=== PATIENT | female | born 1985 | race Caucasian/White ===

== ENCOUNTER → 2019-12-07 | Outpatient (REF) | payer OTHER ==
[~2019-12-07] MED LIST: KEFL500C17 PO
== END ==
LOC: M PLALAB 12:36
PROVIDERS: ATTEND Obstetrics & Gynecology
DX: O36.80X0 Pregnancy with inconclusive fetal viability, not applicable or unspecified (principal)

== ENCOUNTER → 2019-12-09 | Outpatient (CLI) | payer OTHER | LOC: M WUC 14:16 | PROVIDERS: ATTEND Obstetrics & Gynecology | DX: O36.80X0 Pregnancy with inconclusive fetal viability, not applicable or unspecified (principal); Z3A.00 Weeks of gestation of pregnancy not specified ==

== ENCOUNTER → 2020-01-10 | Outpatient (REF) | payer OTHER | LOC: M PLALAB 14:38 | PROVIDERS: ATTEND Advanced Practice Midwife | DX: O30.041 Twin pregnancy, dichorionic/diamniotic, first trimester (principal); Z3A.08 8 weeks gestation of pregnancy ==

== ENCOUNTER → 2020-01-10 | Outpatient (CLI) | payer OTHER ==
[2020-01-10 16:53] LABS: BASO % 0.2 % (0.0-1.0); EOS # 0.1 10^3/uL (0.0-0.5); HEMATOCRIT 37.6 % (36.0-47.0); HEMOGLOBIN 12.9 g/dl (12.0-15.5); LYMPH # 2.7 10^3/uL (1.5-5.0); LYMPH % 22.2 % (24.0-44.0); MEAN CORPUSCULAR HEMOGLOBIN 32.7 pg (27.0-33.0); MEAN CORPUSCULAR HGB CONC 34.3 g/dl (32.0-36.5); MEAN CORPUSCULAR VOLUME 95.2 fl (80.0-96.0); MONO # 0.8 10^3/uL (0.0-0.8); MONO % 6.2 % (0.0-5.0); NEUTROPHILS # 8.5 10^3/uL (1.5-8.5); NEUTROPHILS % 69.6 % (36.0-66.0); PLATELET COUNT, AUTOMATED 210 10^3/uL (150-450); RED BLOOD COUNT 3.95 10^6/uL (4.00-5.40); WHITE BLOOD COUNT 12.2 10^3/uL (4.0-10.0)
[2020-01-10 17:43] LABS: HIV 1&2 SCREEN CENTAUR NEGATIVE (NEGATIVE)
[2020-01-10 20:12] LABS: CHLAMYDIA DNA AMPLIFICATION NEGATIVE (NEGATIVE); GC DNA AMPLIFICATION NEGATIVE (NEGATIVE)
[2020-01-12 10:48] LABS: HEPATITIS B SURFACE ANTIGEN NEGATIVE (NEGATIVE)
== END ==
LOC: M WUC 14:27
PROVIDERS: ATTEND Advanced Practice Midwife
DX: O30.041 Twin pregnancy, dichorionic/diamniotic, first trimester (principal); Z3A.00 Weeks of gestation of pregnancy not specified

== ENCOUNTER → 2020-01-15 | Outpatient (CLI) | payer OTHER | LOC: M LAB 18:18 | PROVIDERS: ATTEND Advanced Practice Midwife | DX: O30.041 Twin pregnancy, dichorionic/diamniotic, first trimester (principal) ==

== ENCOUNTER → 2020-01-19 | Outpatient (CLI) | payer OTHER ==
[~2020-01-19] MED LIST changes: +FERR32TA; +PREN29TA4 PO
--- NOTE | 2020-01-19 17:23 | REP ---
Clinical: Dating viability. Twin . Technique: Transabdominal obstetrical ultrasound with color Doppler evaluation. Findings: Live diamniotic dichorionic twin gestation noted. Cervix measures 3.5 cm in length and appears closed. Twin A CRL of 4.1 cm. heart rate equals 136 beats per minute. Placenta identified right lateral without previa. Twin B CRL of 3.9 cm. heart rate equals 150 beats per minute. Placenta identified anteriorly without previa. Impression: Live diamniotic dichorionic twin gestation with measurements at 10 weeks 5 days gestational age.
== END ==
LOC: M WHC 13:58
PROVIDERS: ATTEND Advanced Practice Midwife
DX: O30.041 Twin pregnancy, dichorionic/diamniotic, first trimester (principal)

== ENCOUNTER 2020-01-30 15:28 | Emergency (ER) | payer OTHER, MEDICAID ==
[~2020-01-30] VITALS: Ht 162.6 cm; Wt 90.2 kg
[~2020-01-30 15:28] MED LIST changes: -FERR32TA; -PREN29TA4 PO
[2020-01-30] MEDS ORDERED: FERR32TA (15:34)
[2020-01-30] MEDS ORDERED: PREN29TA4 PO (15:34)
[2020-01-30 16:06] LABS: BASO % 0.2 % (0.0-1.0); EOS # 0.1 10^3/uL (0.0-0.5); HEMATOCRIT 33.1 % (36.0-47.0); HEMOGLOBIN 11.4 g/dl (12.0-15.5); LYMPH % 18.6 % (24.0-44.0); MEAN CORPUSCULAR HGB CONC 34.4 g/dl (32.0-36.5); MONO # 0.7 10^3/uL (0.0-0.8); MONO % 6.9 % (0.0-5.0); NEUTROPHILS # 7.6 10^3/uL (1.5-8.5); NEUTROPHILS % 72.6 % (36.0-66.0); PLATELET COUNT, AUTOMATED 202 10^3/uL (150-450); RED BLOOD COUNT 3.56 10^6/uL (4.00-5.40); WHITE BLOOD COUNT 10.5 10^3/uL (4.0-10.0)
[2020-01-30 16:56] LABS: BLOOD UREA NITROGEN 7 MG/DL (7-18); CALCIUM LEVEL 8.5 MG/DL (8.5-10.1); CARBON DIOXIDE LEVEL 25 MEQ/L (21-32); CHLORIDE LEVEL 106 MEQ/L (98-107); CREATININE FOR GFR 0.48 MG/DL (0.55-1.30); GLOMERULAR FILTRATION RATE > 60.0 (>60); GLUCOSE, FASTING 89 MG/DL (70-100); HCG, SERUM QUANTITATIVE 111626 MIU/ML; POTASSIUM SERUM 3.1 MEQ/L (3.5-5.1); SODIUM LEVEL 137 MEQ/L (136-145)
--- NOTE | 2020-01-30 18:15 | REPVR ---
PROCEDURE INFORMATION: Exam: US First Trimester, Transabdominal and US Duplex Artery and Vein, Ovaries, Complete Exam date and time: 01/30/2020 5:52 PM Age: 34 years old Clinical indication: Lmp or gestational age (in weeks): Spotting; Antepartum complications; Bleeding; ; Additional info: Spotting/cramping. Twin TECHNIQUE: Imaging protocol: Real-time transabdominal obstetrical ultrasound of the maternal pelvis and a first trimester , less than 14 weeks 0 days, with image documentation. Real-time duplex ultrasound scan of the arterial and venous flow of the ovaries with B-mode, color Doppler flow and spectral waveform analysis, complete duplex. COMPARISON: No relevant prior studies available. FINDINGS: Gestations: Diamniotic monochorionic twin gestations. Twin A: Living intrauterine gestation. Right lateral placental location. [place]-rump length of 5.9 cm, correlating with an estimated gestational age of 12 weeks and 3 days. heart rate of 160 bpm. Twin B: Living intrauterine gestation. Anterior placental location. [place]-rump length of 5.8 cm, correlating with an estimated gestational age of 12 weeks and 2 days. heart rate of 160 bpm. Uterus: Unremarkable. Right adnexa: Now right ovary measures 2.2 x 2.7 x 2.1 cm. Normal echogenicity. Normal arterial waveforms on duplex color spectral Doppler analysis. Left adnexa: Left ovary measures 2.8 x 2.4 x 2.1 cm. Normal echogenicity. Normal arterial waveforms on duplex color spectral Doppler analysis. IMPRESSION: Diamniotic monochorionic living intrauterine twin gestations, as detailed above. Recommend continued interval follow-up at the discretion of gynecology. Electronically signed by: Aly Flores On 01/30/2020 18:15:38 PM
[2020-01-30] MEDS ORDERED: ACETAMINOPHEN TAB 650MG DOSE (2X325MG) PO ONE (18:30)
[2020-01-30] MEDS ORDERED: RHOGAM 300 MCG (1500 IU) INJ (J2790) IM ONE (18:30)
[2020-01-30 19:09] VITALS: BP 112/78
== END 2020-01-30 19:55 | disposition home or self-care (01) ==
LOC: M ED 15:28
DX: O20.9 Hemorrhage in early pregnancy, unspecified (principal); O30.031 Twin pregnancy, monochorionic/diamniotic, first trimester; Z3A.12 12 weeks gestation of pregnancy
CPT/HCPCS: 36415; 76801; 76802; 80048; 81001; 84702; 85025; 86850; 86900; 86901; 93976; 96372; 99283; J2790

== ENCOUNTER → 2020-02-01 | Outpatient (REF) | payer MEDICAID, OTHER ==
[~2020-02-01] MED LIST changes: +ACET-683 PO; +FERR32TA; +IBUP80TA PO; +PERCOCET PO; +PREN29TA4 PO
== END ==
LOC: M SFHCWAGY 18:25
PROVIDERS: ATTEND Advanced Practice Midwife
DX: O30.041 Twin pregnancy, dichorionic/diamniotic, first trimester (principal); Z3A.00 Weeks of gestation of pregnancy not specified

== ENCOUNTER → 2020-02-14 | Outpatient (CLI) | payer MEDICAID, OTHER ==
[~2020-02-14] MED LIST changes: -ACET-683 PO; -IBUP80TA PO; -PERCOCET PO
--- NOTE | 2020-02-14 17:12 | REP ---
REASON: Followup. Multiple ultrasonographic images of the gravid uterus show diamniotic-dichorionic twin gestation. The placenta is right lateral for Fetus A and anterior for Fetus B. There is no evidence of a low lying placenta or other placental abnormality. The cervix measures 3.9 cm in length and is closed. Doppler interrogation of the heart of Fetus A is 163 beats per minute and Doppler interrogation of the heart of Fetus B is 165 beats per minute. FETUS A: BPD 2.9 cm = 15 weeks 2 days HC 10.6 cm = 15 weeks 0 days AC 8.2 cm = 14 weeks 4 days FL 1.5 cm = 14 weeks 3 days The estimated weight is 101 grams, which at the 47th percentile for a 14 week 3 day gestational age. Fetus A was too small for a anatomical screen. FETUS B: BPD 2.8 cm = 15 weeks 0 days HC 10.4 cm = 14 weeks 6 days AC 7.9 cm = 14 weeks 2 days FL 1.4 cm = 14 weeks 1 day The estimated weight is 95 grams, which is at the 36th percentile for a 14 week 3 day gestational age. The subjective amniotic fluid volume seen is within normal limits. Fetus A is in variable positions on the maternal right side and Fetus B is in variable positions on the maternal left side. Evaluation of the maternal adnexal spaces shows no abnormalities. Transvesical and transvaginal imaging was obtained. On transvaginal imaging, an anechoic area was seen near the cervical os with some internal debris measuring 2.4 x 0.6 x 1.6 cm. IMPRESSION: 1. The estimated gestational age of Twin A is 14 weeks 3 days via composite criteria with an KENAN of 08/11/2020 by this exam. 2. The estimated gestational age of Fetus B is 14 weeks 4 days. This does not change the KENAN. 3. The small anechoic area seen near the cervical os potentially represents a large nabothian cyst. A small amount of blood product cannot be ruled out. Followup should be considered.
== END ==
LOC: M WHC 14:44
PROVIDERS: ATTEND Advanced Practice Midwife
DX: O20.0 Threatened abortion (principal)

== ENCOUNTER → 2020-03-18 | Outpatient (CLI) | payer MEDICAID, OTHER ==
[~2020-03-18] MED LIST changes: +ACET-683 PO
--- NOTE | 2020-03-18 23:38 | REP ---
TWIN OB ULTRASOUND: Real-time ultrasound evaluation of gravid uterus performed. There is a living diamniotic, dichorionic twin gestation. Estimated gestational age is 19 weeks 1 day, EDC 08/11/2020. Today's measurements indicate appropriate concordant growth. Placenta for Fetus A is anterior and grade 0 and for Fetus B is anterior and to the right and grade 0. There is no previa or abruption. Cervix is closed and measures 3.6 cm in length. FETUS A: BPD 44 mm = 19 weeks 3 days, 58th percentile HC 163 mm = 19 weeks 0 days, 47th percentile AC 137 mm = 19 weeks 1 day, 50th percentile Femur length 29 mm = 19 weeks 0 days, 47th percentile HC/AC ratio 1.19, within normal range of 1.06 to 1.25 Estimated weight 273 grams, 45th percentile. heart rate is 160 beats per minute. ANATOMY TABLE: SEEN/GROSSLY UNREMARKABLE Lateral ventricles Yes Posterior fossa Yes Upper lip No Four-chamber heart No LVOT Yes RVOT No Stomach Yes Cord insertion Yes Three-vessel cord No Kidneys Yes Bladder Yes Spine No Tiny echogenic focus in the stomach is of doubtful clinical significance. position transverse with head toward the maternal right side. Amniotic fluid appears within normal limits. FETUS B: BPD 46 mm = 19 weeks 6 days, 71st percentile HC 164 mm = 19 weeks 1 day, 51st percentile AC 139 mm = 19 weeks 2 days, 54th percentile Femur length 30 mm = 19 weeks 1 day, 52nd percentile HC/AC ratio 1.18, within normal range of 1.06 to 1.25 Estimated weight 283 grams, 51st percentile. heart rate 155 beats per minute. ANATOMY TABLE: SEEN/GROSSLY UNREMARKABLE Lateral ventricles Yes Posterior fossa Yes Upper lip No Four-chamber heart No LVOT No RVOT No Stomach Yes Cord insertion Yes Three-vessel cord Yes Kidneys No Bladder Yes Spine No position transverse with head toward the maternal left side. Amniotic fluid appears within normal limits.
== END ==
LOC: M WHC 08:33
PROVIDERS: ATTEND Advanced Practice Midwife
DX: O30.042 Twin pregnancy, dichorionic/diamniotic, second trimester (principal); Z3A.19 19 weeks gestation of pregnancy

== ENCOUNTER → 2020-04-09 | Outpatient (CLI) | payer MEDICAID, OTHER ==
--- NOTE | 2020-05-30 16:03 | REP ---
OBSTETRIC ULTRASOUND MULTIPLE GESTATION HISTORY: Follow-up twin gestation. This report was delayed due to a protracted episode of network disruption experienced by this facility. OBSTETRIC SONOGRAPHY FINDINGS: Scanning through the gravid uterus demonstrates a viable twin intrauterine gestation. Closed cervical length measured transabdominally is 3.8 cm. Twin A heart rate is 156 beats per minute and twin B 155 beats per minute. Twin A is cephalic. Twin B reviewed with head to the maternal right. Placenta twin A is anterior grade 1 without evidence of previa or abruption. Placenta for twin B anterior and left lateral grade 1 without evidence of previa or abruption. The following anatomic structures are identified for twin A and felt to be unremarkable: spine, left-sided stomach, kidneys and bladder, four chamber heart with left and right ventricular outflow tract views, three-vessel cord, abdominal wall cord insertion, face, and lips. BIOMETRY CHART TWIN A BPD 87 mm 23 weeks 3 days Head Circumference 203 mm 22 weeks 3 days Abdominal Circumference 171 mm 22 weeks 1 day Femur Length 39 mm 22 weeks 4 days Humeral Length 37 mm 22 weeks 6 days Estimated gestational age based on [facility] sonographic criteria 22 weeks 5 days. The following anatomic structures are identified in twin B and felt to be unremarkable: spine, left-sided stomach, kidneys and bladder, three-vessel cord, abdominal wall cord insertion, face and lips. BIOMETRY CHART TWIN B BPD 54 mm 22 weeks 4 days Head Circumference 199 mm 22 weeks 1 day Abdominal Circumference 175 mm 22 weeks 3 days Femur Length 36 mm 21 weeks 3 days Humeral Length 36 mm 22 weeks 3 days Estimated gestational age based on sonography 22 weeks 1 day. Estimated weight 464 grams. Amniotic fluid is subjectively normal for both gestations. MTDD
== END ==
LOC: M WHC 17:07
PROVIDERS: ATTEND Advanced Practice Midwife
DX: Z34.80 Encounter for supervision of other normal pregnancy, unspecified trimester (principal)

== ENCOUNTER → 2020-05-01 | Outpatient (CLI) | payer MEDICAID, OTHER ==
[2020-05-01 12:41] LABS: HEMATOCRIT 30.7 % (36.0-47.0); HEMOGLOBIN 10.2 g/dl (12.0-15.5); MEAN CORPUSCULAR HGB CONC 33.2 g/dl (32.0-36.5); MEAN CORPUSCULAR VOLUME 102.3 fl (80.0-96.0); PLATELET COUNT, AUTOMATED 260 10^3/uL (150-450); WHITE BLOOD COUNT 14.6 10^3/uL (4.0-10.0)
== END ==
LOC: M PLALAB 09:32
PROVIDERS: ATTEND Advanced Practice Midwife
DX: O30.049 Twin pregnancy, dichorionic/diamniotic, unspecified trimester (principal)

== ENCOUNTER 2020-05-03 21:30 | Outpatient (CLI) | payer MEDICAID, OTHER ==
[~2020-05-03] VITALS: Ht 162.6 cm; Wt 92.9 kg
[~2020-05-03 21:30] MED LIST changes: -ACET-683 PO
[2020-05-03 22:01] VITALS: BP 117/57
[2020-05-03] MEDS ORDERED: ACET-683 PO (22:11)
[2020-05-03] MEDS ORDERED: LR 1,000 ML IV SCH (22:30)
[2020-05-03] MEDS ORDERED: LACTATED RINGER'S 1000 ML IV ONE (22:30)
[2020-05-03 22:39] LABS: APPEARANCE, URINE CLOUDY (CLEAR); BACTERIA, URINE AUTO 1+ (NEGATIVE); BILIRUBIN, URINE AUTO NEGATIVE (NEGATIVE); BLOOD, URINE BLOOD 1+ (NEGATIVE); COLOR, URINE YELLOW (YELLOW); GLUCOSE, URINE (UA) AUTO NEGATIVE (NEGATIVE); KETONE, URINE AUTO NEGATIVE (NEGATIVE); LEUKOCYTE ESTERASE, URINE AUTO 3+ (NEGATIVE); MUCUS, URINE SMALL (NEGATIVE); NITRITE, URINE AUTO NEGATIVE (NEGATIVE); PROTEIN, URINE AUTO 1+ mg/dL (NEGATIVE); RBC, URINE AUTO 9 /HPF (0-3); SPECIFIC GRAVITY URINE AUTO 1.012 (1.002-1.035); SQUAMOUS EPITHELIAL CELL UR AU 11 /HPF (0-6); UROBILINOGEN, URINE AUTO 0.2 mg/dL (0.0-2.0); WBC, URINE AUTO 142 /HPF (0-3)
[2020-05-03] MEDS ORDERED: NS 1,000 ML IV SCH (23:30)
[2020-05-03] MEDS ORDERED: cefTRIAXone SOD 2 GM in D5W MINI-BAG PLUS 50 ML IV ONE (23:30)
--- NOTE | 2020-05-03 23:41 | IPNPDOC ---
Text Note Date of Service The patient was seen on 05/03/20. NOTE Outpatient 34yo . Presents @ 25w1d with complaints of bilateral flank pain. Reports history of undiagnosed UTI/kidney infections in previous pregnancies. "I just wait too long because I don't feel ill." Known di/di twin gestation. Afebrile, normotensive Abdomen soft, gravid Cat I tracings x 2, no UC CVAT bilaterally. UA significant for 3+ leuk esterase, 1+ blood, 142WBC, 9 RBC, 1+ bacteria Renal scan ordered. VS,Fishbone, I+O VS, Fishbone, I+O Vital Signs Date Time Temp Pulse Resp B/P (MAP) Pulse Ox O2 Delivery O2 Flow Rate FiO2 05/03/20 22:01 98.6 104 18 117/57 (77) Anayeli To CNM May 03, 2020 23:41
[2020-05-04] MEDS ORDERED: PERCOCET 5MG/325MG TAB PO ONE
[2020-05-04 00:34] VITALS: BP 101/55
[2020-05-04 00:44] LABS: HEMATOCRIT 28.4 % (36.0-47.0); HEMOGLOBIN 9.6 g/dl (12.0-15.5); MEAN CORPUSCULAR HGB CONC 33.8 g/dl (32.0-36.5); MEAN CORPUSCULAR VOLUME 100.7 fl (80.0-96.0); PLATELET COUNT, AUTOMATED 228 10^3/uL (150-450); RED BLOOD COUNT 2.82 10^6/uL (4.00-5.40); WHITE BLOOD COUNT 17.5 10^3/uL (4.0-10.0)
[2020-05-04] MEDS ORDERED: KEFL500C17 PO (02:26)
--- NOTE | 2020-05-04 02:28 | IPNPDOC ---
Text Note Date of Service The patient was seen on 05/04/20. NOTE Outpatient Sono shows no evidence hydronephrosis Pt reports feeling improvement with IV hydration. Has received rocephin 2gm IV FH reassuring for gestation x 2 [address] home. Routine precautions. Start Keflex 500mg BID tomorrow. Warnings reviewed. Keep appt next week VS,Fishbone, I+O VS, Fishbone, I+O Laboratory Tests 05/04/20 00:01 Vital Signs Date Time Temp Pulse Resp B/P (MAP) Pulse Ox O2 Delivery O2 Flow Rate FiO2 05/04/20 01:59 18 05/04/20 00:34 100 101/55 (70) 05/03/20 22:01 98.6 I&O- Last 24 Hours up to 6 AM 05/04/20 06:00 Intake Total 625 ml Balance 625 ml Anayeli To CNM May 04, 2020 02:28
[2020-05-04 02:45] VITALS: BP 105/72
--- NOTE | 2020-06-04 09:08 | REP ---
RENAL ULTRASOUND HISTORY: Flank pain bilateral, . FINDINGS: Real-time sonographic evaluation of the kidneys performed. Kidneys are normal in size and echotexture, right kidney measuring 14.2 x 5.8 x 5.9 cm and left kidney 13.5 x 5.4 x 5.4 cm. No hydronephrosis or renal mass is seen. There is no definite renal calculus. Note is made of intrauterine twin gestation with heart rate for fetus A 160 beats per minute and for fetus B 157 beats per minute. Urinary bladder is empty. IMPRESSION: No hydronephrosis or other significant renal abnormality. Preliminary report provided by [facility] at the time of the exam. [facility]
== END 2020-05-04 02:41 | disposition home or self-care (01) ==
LOC: M LDO 21:30
PROVIDERS: ATTEND Advanced Practice Midwife
DX: O30.042 Twin pregnancy, dichorionic/diamniotic, second trimester (principal); O23.42 Unspecified infection of urinary tract in pregnancy, second trimester; Z3A.25 25 weeks gestation of pregnancy
CPT/HCPCS: 36415; 76775; 81001; 85027; 87086; 96361; 96365; J0696

== ENCOUNTER → 2020-05-14 | Outpatient (REF) | payer MEDICAID, OTHER ==
[~2020-05-14] MED LIST changes: +ACET-683 PO
== END ==
LOC: M SFHCWAGY 10:27
PROVIDERS: ATTEND Advanced Practice Midwife
DX: O30.049 Twin pregnancy, dichorionic/diamniotic, unspecified trimester (principal); Z3A.00 Weeks of gestation of pregnancy not specified

== ENCOUNTER → 2020-06-04 | Outpatient (CLI) | payer MEDICAID ==
--- NOTE | 2020-06-11 15:12 | REP ---
OB TWIN ULTRASOUND HISTORY: Evaluate growth. TECHNIQUE: Real-time sonographic evaluation of the gravid uterus is performed. FINDINGS: There is a living diamniotic dichorionic twin gestation. Placentas are anterior and grade 3 with no previa or abruption. Cervix is closed and measures 3.1 cm in length. Estimated gestational age is reportedly 30 weeks 2 days, estimated date of confinement (EDC) 08/11/2020. There is appropriate concordant growth of each fetus. FETUS A: heart rate is 144 beats per minute. BIOMETRY AND GROWTH: FETUS A BPD 76 mm 30 weeks 2 days 50th percentile HC 277 mm 30 weeks 2 days 50th percentile AC 268 mm 30 weeks 6 days 59th percentile Femur length 59 mm 30 weeks 6 days 59th percentile AC/HC ratio 1.03 Normal 0.97 to 1.16 Estimated weight 1637 g 55th percentile position is breech on the maternal right side. Amniotic fluid appears within normal limits with the deepest pocket of fluid surrounding fetus A 5.6 cm. FETUS B: heart rate 125 beats per minute. BIOMETRY AND GROWTH: FETUS B BPD 75 mm 30 weeks 1 days 48th percentile HC 287 mm 31 weeks 4 days 70th percentile AC 256 mm 29 weeks 6 days 40th percentile Femur length 59 mm 30 weeks 5 days 55th percentile AC/HC ratio 1.12 Normal 0.97 to 1.16 Estimated weight 1543 g 52nd percentile position is vertex on the maternal left side. Amniotic fluid appears within normal limits with the deepest pocket of fluid surrounding fetus B 5.9 cm. MTDD
== END ==
LOC: M WHC 15:31
PROVIDERS: ATTEND Advanced Practice Midwife
DX: O30.043 Twin pregnancy, dichorionic/diamniotic, third trimester (principal); Z3A.30 30 weeks gestation of pregnancy; O32.1XX1 Maternal care for breech presentation, fetus 1

== ENCOUNTER → 2020-06-13 | Outpatient (REF) | payer SELFPAY | LOC: M SFHCWAGY 13:29 | PROVIDERS: ATTEND Advanced Practice Midwife | DX: O26.899 Other specified pregnancy related conditions, unspecified trimester (principal) ==

== ENCOUNTER 2020-06-17 06:50 | Outpatient (CLI) | payer MEDICAID, OTHER ==
[2020-06-17] VITALS (10 sets, daily range): BP systolic 104–118; BP diastolic 55–66
[~2020-06-17] VITALS: Ht 162.6 cm; Wt 98.0 kg
[2020-06-17] MEDS ORDERED: IRON SUCROSE 500 MG in NS 250 ML IV ONE (07:00)
[2020-06-17] MEDS: IRON SUCROSE 25 MG in NS 25 ML IV ONE (07:30)
[2020-06-17] MEDS: IRON SUCROSE 475 MG in NS 250 ML IV ONE (08:45)
== END 2020-06-17 13:45 | disposition home or self-care (01) ==
LOC: M INFU 06:50
PROVIDERS: ATTEND Advanced Practice Midwife
DX: O99.013 Anemia complicating pregnancy, third trimester (principal); Z3A.31 31 weeks gestation of pregnancy
CPT/HCPCS: 96365; 96366; J1756

== ENCOUNTER → 2020-06-18 | Outpatient (CLI) | payer MEDICAID, SELFPAY ==
--- NOTE | 2020-06-21 09:19 | REP ---
FOLLOW-UP OB ULTRASOUND: 06/18/20. CLINICAL: Follow-up anatomical evaluation. FINDINGS: Ultrasound examination demonstrates known advanced diamniotic dichorionic twin gestation. Gestational age by LMP is 32 weeks 2 days with KENAN 08/11/20. FETUS A: Breech presentation demonstrating appropriate motion. Placenta noted anteriorly and grade 3. Amniotic fluid volume is normal and the deepest pocket measures 5.6cm. HR is 124bpm. Estimated weight by current measurement 1,863g (28th percentile). Limited anatomical assessment demonstrates normal four chamber heart and cardiac ventricular outflow tracts. FETUS B: Breech presentation demonstrating appropriate motion. Placenta noted anteriorly and grade 3 without placenta previa. Amniotic fluid volume is normal and the deepest pocket measures 6.0cm. HR is 142bpm. Estimated weight by current measurement 1,877g (30th percentile). Limited anatomical assessment demonstrates normal four chamber heart and cardiac ventricular outflow tracts. IMPRESSION: Advanced twin gestation demonstrating appropriate concordant growth. MTDD
== END ==
LOC: M WHC 09:22
PROVIDERS: ATTEND Advanced Practice Midwife
DX: O30.043 Twin pregnancy, dichorionic/diamniotic, third trimester (principal); Z3A.32 32 weeks gestation of pregnancy; O32.1XX1 Maternal care for breech presentation, fetus 1

== ENCOUNTER → 2020-06-19 | Outpatient (CLI) | payer MEDICAID, OTHER ==
--- NOTE | 2020-06-24 09:12 | REP ---
BIOPHYSICAL ULTRASOUND DATE: 06/19/2020 CLINICAL: Twin for well-being. TECHNIQUE: Transabdominal obstetrical ultrasound with color Doppler evaluation. FINDINGS: Advanced twin noted. Gestational age based on last menstrual period (LMP) 32 weeks 3 days with estimated date of delivery 08/11/2020. Placenta noted anteriorly and grade 3 without evidence for placenta previa or abruption. Cervix measures 3.2 cm in length and appears close. Fetus A: Breech presentation towards the right side of the uterus. motion noted. heart equals 140 beats per minute. Amniotic fluid volume is normal and largest pocket measures 5.1 cm in depth. Biophysical profile score equals 8 out of 8. Umbilical artery 1 SD ratio: 2.80. Umbilical artery 2 SD ratio: 2.33 Fetus B: Breech presentation towards the left side of the uterus anterior to fetus A. motion noted. heart rate equals 132 beats per minute. Amniotic fluid volume is normal and the largest pocket measures 5.6 cm depth. Biophysical profile score equals 8 out of 8. Umbilical artery 1 SD ratio: 2.51. Umbilical artery 2 SD ratio: 3.02 IMPRESSION: 1. Advance twin gestation. 2. Biophysical profile scores and amniotic fluid volumes are normal. MTDD
== END ==
LOC: M WHC 09:13
PROVIDERS: ATTEND Advanced Practice Midwife
DX: O30.043 Twin pregnancy, dichorionic/diamniotic, third trimester (principal); Z3A.32 32 weeks gestation of pregnancy; O32.1XX1 Maternal care for breech presentation, fetus 1; O32.1XX2 Maternal care for breech presentation, fetus 2

== ENCOUNTER 2020-06-21 14:06 | Emergency (ER) | payer OTHER ==
[~2020-06-21] VITALS: Ht 162.6 cm; Wt 101.2 kg
--- NOTE | 2020-06-21 15:45 | REPVR ---
PROCEDURE INFORMATION: Exam: US Duplex Right Upper Extremity Veins, Limited Exam date and time: 06/21/2020 3:14 PM Age: 34 years old Clinical indication: Pain; Swelling (edema) of limb; Upper extremity, right; Arm, upper; Additional info: Pain, swelling, redness TECHNIQUE: Imaging protocol: Real-time Duplex ultrasound of the Right Upper Extremity with 2-D santos scale, color Doppler flow and spectral waveform analysis with image documentation. Limited exam focused on the right upper extremity veins. COMPARISON: No relevant prior studies available. FINDINGS: Right deep veins: The axillary and brachial veins are patent throughout without thrombus. Normal compressibility and/or augmentation response. The visualized internal jugular and subclavian veins are patent. Right superficial veins: The visualized basilic vein is patent without thrombus. The cephalic vein is incompletely compressible and contains hypoechoic intraluminal material at the level of the antecubital fossa. Soft tissues: Unremarkable. IMPRESSION: 1. Nonocclusive thrombus within the right cephalic vein. 2. No evidence of deep vein thrombosis in the visiualized upper extremity. Electronically signed by: Luis Daniel Acosta On 06/21/2020 15:45:48 PM
[2020-06-21 16:09] VITALS: BP 119/58
== END 2020-06-21 16:14 | disposition home or self-care (01) ==
LOC: M ED 14:06
DX: O99.113 Other diseases of the blood and blood-forming organs and certain disorders involving the immune mechanism complicating pregnancy, third trimester (principal); I82.611 Acute embolism and thrombosis of superficial veins of right upper extremity; T80.89XA Other complications following infusion, transfusion and therapeutic injection, initial encounter; O30.003 Twin pregnancy, unspecified number of placenta and unspecified number of amniotic sacs, third trimester; Z3A.32 32 weeks gestation of pregnancy; Z79.899 Other long term (current) drug therapy

== ENCOUNTER → 2020-06-27 | Outpatient (CLI) | payer OTHER ==
[2020-06-27 16:30] LABS: BASO # 0.1 10^3/uL (0.0-0.2); BASO % 0.4 % (0.0-1.0); EOS # 0.1 10^3/uL (0.0-0.5); EOS % 0.8 % (0.0-3.0); HEMATOCRIT 30.1 % (36.0-47.0); HEMOGLOBIN 9.7 g/dl (12.0-15.5); LYMPH # 2.3 10^3/uL (1.5-5.0); LYMPH % 17.4 % (24.0-44.0); MEAN CORPUSCULAR HEMOGLOBIN 33.2 pg (27.0-33.0); MEAN CORPUSCULAR HGB CONC 32.2 g/dl (32.0-36.5); MEAN CORPUSCULAR VOLUME 103.1 fl (80.0-96.0); MONO # 0.7 10^3/uL (0.0-0.8); MONO % 5.1 % (0.0-5.0); NEUTROPHILS # 9.5 10^3/uL (1.5-8.5); NEUTROPHILS % 71.5 % (36.0-66.0); PLATELET COUNT, AUTOMATED 296 10^3/uL (150-450); RED BLOOD COUNT 2.92 10^6/uL (4.00-5.40); WHITE BLOOD COUNT 13.2 10^3/uL (4.0-10.0)
== END ==
LOC: M WUC 10:49
PROVIDERS: ATTEND Advanced Practice Midwife
DX: O99.013 Anemia complicating pregnancy, third trimester (principal)

== ENCOUNTER → 2020-06-27 | Outpatient (REF) | payer OTHER | LOC: M SFHCWAGY 12:57 | PROVIDERS: ATTEND Advanced Practice Midwife | DX: O30.043 Twin pregnancy, dichorionic/diamniotic, third trimester (principal) ==

== ENCOUNTER → 2020-06-27 | Outpatient (CLI) | payer OTHER ==
--- NOTE | 2020-06-27 10:25 | REP ---
INDICATION: TWIN GESTATION,BPP W/CORD DOPPLERS COMPARISON: 06/19/2020 TECHNIQUE: Transabdominal obstetrical ultrasound with color Doppler evaluation. FINDINGS: Examination demonstrates twin live intrauterine . Gestational age by LMP 33 weeks 4 days with estimated date of delivery 08/11/2020. Cervix appears closed. TWIN A: Breech presentation towards right side of the uterus. heart rate equals 152 beats per minute. Placenta noted anterior and grade 3. Amniotic fluid volume deepest pocket: 6.2 cm Biophysical profile score: 8/8 Umbilical artery 1 SD ratio: 2.49 (1.76-3.72) Umbilical artery 2 SD ratio: 2.07 TWIN B: Breech presentation towards left side of the uterus. heart rate equals 134 beats per minute. Placenta noted anterior and grade 3. Amniotic fluid volume deepest pocket: 7.9 cm Biophysical profile score: 8/8 Umbilical artery 1 SD ratio: 3.39 (1.76-3.72) Umbilical artery 2 SD ratio: 2.66 IMPRESSION: Twin gestation demonstrating appropriate biophysical profile score and amniotic fluid volume. <Electronically signed by Jonn Arroyo > 06/27/20 [id number]
== END ==
LOC: M WHC 07:48
PROVIDERS: ATTEND Advanced Practice Midwife
DX: O30.043 Twin pregnancy, dichorionic/diamniotic, third trimester (principal); Z3A.33 33 weeks gestation of pregnancy

== ENCOUNTER → 2020-07-03 | Outpatient (CLI) | payer OTHER ==
--- NOTE | 2020-07-03 15:52 | REP ---
INDICATION: TWIN GESTATION,BPP W/CORD DOPPLERS. COMPARISON: Comparison sonography June 27, 2020. TECHNIQUE: Transabdominal obstetric sonography: FINDINGS: Real-time scanning through the gravid uterus demonstrates a viable twin intrauterine gestation. Twin A is breech in lie along the maternal right and twin B transverse along the maternal left. heart rate for twin A is recorded at 153 beats per minute and that for twin B at 139 beats per minute. Anterior grade 3 placenta is seen without evidence of previa. Closed cervical length is 3.0 cm viewed transabdominally. Amniotic fluid is subjectively normal. The deepest pocket of amniotic fluid surrounding twin A measures 7.0 cm adjacent to twin B 5.5 cm Biophysical profile score for twin A is 8 out of a possible 8. Biophysical profile score for twin B is 8 out of a possible 8. The S/D ratio in the umbilical are artery by Doppler for twin A is normal at 2.50 and that for Twin B is normal at 2.46. IMPRESSION: Limited obstetric sonography: Multiple gestation. Biophysical profile score 8 out of possible 8 for both twins. <Electronically signed by Tomas Ortez > 07/03/20 [id number]
== END ==
LOC: M WHC 08:23
PROVIDERS: ATTEND Advanced Practice Midwife
DX: O30.043 Twin pregnancy, dichorionic/diamniotic, third trimester (principal); Z3A.00 Weeks of gestation of pregnancy not specified

== ENCOUNTER → 2020-07-10 | Outpatient (REF) | payer OTHER | LOC: M SFHCWAGY 14:15 | PROVIDERS: ATTEND Specialist | DX: Z34.93 Encounter for supervision of normal pregnancy, unspecified, third trimester (principal); Z3A.35 35 weeks gestation of pregnancy ==

== ENCOUNTER → 2020-07-10 | Outpatient (CLI) | payer OTHER ==
--- NOTE | 2020-07-10 13:18 | REP ---
INDICATION: GROWTH/BPP/CORD DOPPLERS/TWINS. COMPARISON: 07/03/2020 as well as other prior exams. TECHNIQUE: Real-time sonographic evaluation of the gravid uterus performed. FINDINGS: There is a living intrauterine twin gestation, diamniotic dichorionic. Estimated gestational age is35 weeks 3 days, EDC 08/11/2020. Today's measurements indicate appropriate concordant growth. Fetus a: Presentation: Breech on the right. Placenta anterior, grade 3, without evidence of placenta previa. heart rate is recorded at 144 beats per minute. Amniotic fluid is subjectively normal. Biophysical profile score 04/13. Biometry chart: BPD: 86 mm, 34 weeks 4 days, 37th percentile. HC: 311 mm, 34 weeks 5 days, 40th percentile AC: 320 mm, 36 weeks 0 days, 58th percentile Femur length: 67 mm, 34 weeks 3 days, 36th percentile HC to AC ratio: 0.97, normal range 0.93-1.12. Estimated weight: 2637g, 45th percentile. SD ratio umbilical artery 2.49-2.52, normal 1.66-3.56. RI 0.60 , normal range 0.46 to 0.72. Fetus b: Presentation: Oblique, maternal left. Placenta anterior, grade 3, without evidence of placenta previa. heart rate is recorded at 129 beats per minute. Amniotic fluid is subjectively normal. Biophysical profile score 04/13. Biometry chart: BPD: 85 mm, 34 weeks 2 days, 35th percentile. HC: 323 mm, 36 weeks 4 days, 69th percentile AC: 330 mm, 36 weeks 6 days, 72nd percentile Femur length: 65 mm, 533 weeks 2 days, 18th percentile HC to AC ratio: 0.98, normal range 0.93-1.12. Estimated weight: 2740g, 56th percentile. SD ratio umbilical artery 2.57-2.84 (normal 1.66-3.56). RI 0.61 to 0.65, (normal 0.46-0.72). IMPRESSION: Viable intrauterine twin gestation as above. Appropriate growth. Biophysical profile score for each twin 04/13. Amniotic fluid within normal limits. <Electronically signed by Trent Joseph > 07/10/20 [id number]
== END ==
LOC: M WHC 09:47
PROVIDERS: ATTEND Obstetrics & Gynecology
DX: O30.043 Twin pregnancy, dichorionic/diamniotic, third trimester (principal); M79.89 Other specified soft tissue disorders

== ENCOUNTER → 2020-07-16 | Outpatient (CLI) | payer OTHER ==
--- NOTE | 2020-07-16 09:45 | REP ---
INDICATION: BPP/CORD DOPPLERS/TWINS. COMPARISON: July 10, 2020.. TECHNIQUE: Limited transabdominal obstetric sonography. FINDINGS: Scanning through the gravid uterus again demonstrates a dichorionic diamniotic twin intrauterine gestation. Fetus A is breech lung the maternal right and fetus B oblique in position along the maternal left. Anterior grade 3 placenta without evidence of previa. Closed cervical length 3.0 cm transabdominally viewed. heart rate for twin A is 155 beats per minute and that for twin B is recorded at 146 beats per minute. Amniotic fluid is subjectively normal. The deepest pocket surrounding twin A measures 5.6 cm and that surrounding twin B 5.3 cm. Biophysical profile score for fetus A is 8 out of a possible 8. Biophysical profile score for fetus B is 8 out of a possible 8. SD ratio of the umbilical cord arteries are normal, measured at 2.70 for fetus A and 2.80 for fetus B. IMPRESSION: Twin intrauterine gestation at 36 weeks 2 days by comparison with prior study. KENAN August 11, 2020. <Electronically signed by Tomas Ortez > 07/16/20 [id number]
== END ==
LOC: M WHC 08:24
PROVIDERS: ATTEND Advanced Practice Midwife
DX: O30.043 Twin pregnancy, dichorionic/diamniotic, third trimester (principal)

== ENCOUNTER → 2020-07-24 | Outpatient (CLI) | payer MEDICAID | LOC: M LABSMTC 10:31 | PROVIDERS: ATTEND Anesthesiology | DX: Z01.812 Encounter for preprocedural laboratory examination (principal) ==

== ENCOUNTER 2020-07-29 05:09 | Inpatient (IN) | payer MEDICAID, OTHER ==
[~2020-07-29] VITALS: Ht 162.6 cm; Wt 97.8 kg
[2020-07-29] MEDS ORDERED: LR 1,000 ML IV SCH ×2 (05:30→09:06)
[2020-07-29] MEDS ORDERED: BICITRA 30ML SOLN UDC PO ONE (05:30)
[2020-07-29] MEDS ORDERED: LR 1,000 ML IV ONE (05:30)
[2020-07-29] MEDS ORDERED: ceFAZolin SOD 2 GM in IV 1 EA IV ONE (05:30)
[2020-07-29 05:47] VITALS: BP 118/71
[2020-07-29 06:13] LABS: HEMATOCRIT 32.8 % (36.0-47.0); HEMOGLOBIN 10.9 g/dl (12.0-15.5); MEAN CORPUSCULAR HEMOGLOBIN 32.7 pg (27.0-33.0); MEAN CORPUSCULAR HGB CONC 33.2 g/dl (32.0-36.5); MEAN CORPUSCULAR VOLUME 98.5 fl (80.0-96.0); PLATELET COUNT, AUTOMATED 296 10^3/uL (150-450); RED BLOOD COUNT 3.33 10^6/uL (4.00-5.40); WHITE BLOOD COUNT 13.7 10^3/uL (4.0-10.0)
[2020-07-29 06:42] VITALS: BP 126/68
[2020-07-29] MEDS ORDERED: MORPHINE PRES-FREE INJ 10 MG/10 ML VIAL (J2274) As Ordered ONE (07:30)
[2020-07-29] MEDS ORDERED: OXYTOCIN INJ 10 UNITS/ML VIAL (J2590) As Ordered ONE (07:30)
[2020-07-29] MEDS ORDERED: diphenhydrAMINE 50MG/ML VIAL (J1200) IV PRN (07:54)
[2020-07-29] MEDS ORDERED: ONDANSETRON 4MG/2ML VIAL IV PRN ×3 (07:54→09:30)
[2020-07-29] MEDS ORDERED: NALOXONE INJ 0.4MG/1ML VIAL (J2310 PER 1MG) IV PRN ×2 (07:54)
[2020-07-29] MEDS ORDERED: METOCLOPRAMIDE INJ 10MG/2ML VIAL (J2765 PER 1) IV PRN (07:54)
[2020-07-29] MEDS ORDERED: ePHEDrine SULFATE 25 MG/5 ML(5MG/ML) SYRINGE As Ordered ONE (08:06)
[2020-07-29] MEDS ORDERED: PHENYLephrine HCL 500 MCG/5 ML (100MCG/ML) SYRINGE (J2370) As Ordered ONE ×2 (08:06→08:10)
[2020-07-29] MEDS ORDERED: ONDANSETRON 4MG/2ML VIAL As Ordered ONE (08:19)
[2020-07-29] MEDS ORDERED: dexameTHASONE 4 MG/ML 1ML VIAL (J1100 PER 1MG) As Ordered ONE (08:19)
[2020-07-29] MEDS ORDERED: OXYTOCIN 30 UNITS IN 0.9% NaCl 500ML IV BAG (J2590) As Ordered ONE (08:46)
[2020-07-29] MEDS ORDERED: KETOROLAC 60MG 2ML VIAL As Ordered ONE (08:58)
[2020-07-29] MEDS ORDERED: OXYTOCIN DRIP 30 UNITS in IV 1 EA IV SCH (09:06)
[2020-07-29] MEDS ORDERED: MEASLES,MUMPS,RUBELLA VACCINE INJ (MMR-II) (90707) SC SCH (09:15)
[2020-07-29] MEDS ORDERED: RHOGAM 300 MCG (1500 IU) INJ (J2790) IM SCH (09:15)
[2020-07-29] MEDS ORDERED: fentaNYL 100 MCG/2 ML INJECTION (J3010) IV PRN (09:30)
[2020-07-29] MEDS ORDERED: oxyCODONE 5MG TAB PO PRN (09:30)
[2020-07-29 12:15] VITALS: BP 107/58
[2020-07-29 14:00] VITALS: BP 113/66
--- NOTE | 2020-07-29 14:50 | ROOPDOC ---
[facility] Report Of Operation Report of Operation DATE OF PROCEDURE: 07/29/20 SURGEON: Marcie Avila M.D. MECHANICAL RELIABILITY ENGINEER: Radha Barrientos CNM ( essential for tissue retractions, exposure and delivery of newborns) PROCEDURE: Primary section PREOPERATIVE DIAGNOSIS: 1. Breech 2. Twin gestation 38 weeks POSTOPERATIVE DIAGNOSIS: 1. Breech 2. Twin gestation at 38 weeks ANESTHESIA: Spinal ESTIMATED BLOOD LOSS: 800 mL URINE OUTPUT: 150 mL INTRAVENOUS FLUIDS: 2300 mL of lactated Ringer's solution PREOPERATIVE ANTIBIOTICS:. 2 g of Ancef OPERATIVE FINDINGS: Liveborn twin A female 6 lbs. 1 oz. delivered at 0 816, twin B female 6 lbs. 5 oz. born at 0817 Apgars for both twins was 8 and 9 SPECIMENS: Placentas DESCRIPTION OF PROCEDURE: After informed consent was obtained and written consent was reviewed. The patient was brought to the operating room where spinal anesthesia was placed. She was then placed in the supine position with a left lateral tilt. Franco catheter was placed and to gravity. Patient was then prepped and draped in the normal sterile fashion. A timeout operating room was performed identifying the patient, procedure be performed as well as drug allergies. Anesthesia was tested and deemed to be adequate. Pfannenstiel skin incision was made and this was carried down to the underlying rectus fascia. The fascia was then scored and this incision was extended bilaterally. The fascia was then dissected off the underlying rectus muscle superiorly and inferiorly. The rectus muscles were then in the midline. The peritoneum is then entered. Vesicouterine peritoneum was then tented and excised and a bladder flap was created. Mobius retractor was then placed. Next, a curvilinear incision was then made in the lower uterine segment. Amniotomy was performed, productive, clear fluid. Twin A was delivered breech. Lower extremities delivered followed by corpus and upper extremities and head corners clamped 2 was brought over to the warmer with a good cry. Twin B was delivered. The head was brought to the level of the incision atraumatically and delivered along the shoulders and corpus. The cord was clamped x2. The was brought over to the warmer with a good cry. Placenta was drained and delivered grossly intact. The uterus was cleared of all clots and debris and the uterine incision was then closed using 0 Vicryl in a running locking fashion followed second layer of 0 Vicryl used for imbrication in a running nonlocking fashion The abdomen suctioned. Surgical sites reinspected and noted be hemostatic. The retractor was then removed. The anterior peritoneum was then reapproximated with 3-0 Vicryl. The rectus muscles were reapproximated 3-0 Vicryl. The fascia was then closed using 0 Vicryl in a running nonlocking fashion. The subcutaneous tissues was then irrigated and suctioned. Subcutaneous tissue was reapproximated using 3-0 Vicryl . Several subdermal stitch is placed using 3-0 Vicryl and the skin was closed with 4-0 Monocryl and subcuticular fashion. This incision was then cleaned and dried and was dressed. The patient was then taken to recovery in stable condition. All counts were correct. The couple has decided to name the newborns Kellie. My rn surgical Radha Barrientos played in an essential role during the operation. She assisted with tissue identification retraction, delivery of the , as well as wound closure. MARCIE AVILA MD. Jul 29, 2020 14:50
[2020-07-29] MEDS: KETOROLAC 30 MG/ML 1ML VIAL IV SCH ×2 (15:09→20:44)
[2020-07-29 18:00] VITALS: BP 124/67
[2020-07-29] MEDS: DOCUSATE SODIUM 100MG CAPSULE PO SCH (20:44)
[2020-07-29 22:14] VITALS: BP 99/54
[2020-07-30 02:15] VITALS: BP 111/64
[2020-07-30] MEDS: KETOROLAC 30 MG/ML 1ML VIAL IV SCH (02:56)
[2020-07-30] MEDS: PERCOCET 5MG/325MG TAB PO PRN ×5 (03:00→21:17)
[2020-07-30 06:54] VITALS: BP 106/58
[2020-07-30] MEDS: DOCUSATE SODIUM 100MG CAPSULE PO SCH ×2 (07:59→21:17)
[2020-07-30] MEDS: PRENATAL VITAMINS CHEWABLE TABLET PO SCH (07:59)
[2020-07-30 10:04] VITALS: BP 111/61
[2020-07-30] MEDS: IBUPROFEN 800 MG TAB PO SCH ×2 (11:05→18:44)
[2020-07-30 11:14] LABS: HEMATOCRIT 25.6 % (36.0-47.0); HEMOGLOBIN 8.5 g/dl (12.0-15.5); MEAN CORPUSCULAR HEMOGLOBIN 33.7 pg (27.0-33.0); MEAN CORPUSCULAR HGB CONC 33.2 g/dl (32.0-36.5); MEAN CORPUSCULAR VOLUME 101.6 fl (80.0-96.0); PLATELET COUNT, AUTOMATED 237 10^3/uL (150-450); RED BLOOD COUNT 2.52 10^6/uL (4.00-5.40); WHITE BLOOD COUNT 14.5 10^3/uL (4.0-10.0)
[2020-07-30 13:55] VITALS: BP 108/56
[2020-07-30] MEDS ORDERED: IBUP80TA PO (15:47)
[2020-07-30] MEDS ORDERED: PERCOCET PO (15:48)
[2020-07-30 17:27] VITALS: BP 116/62
[2020-07-31] MEDS: IBUPROFEN 800 MG TAB PO SCH (02:56)
[2020-07-31] MEDS: PERCOCET 5MG/325MG TAB PO PRN (05:12)
[2020-07-31 05:26] VITALS: BP 122/63
[2020-07-31] MEDS: DOCUSATE SODIUM 100MG CAPSULE PO SCH (09:00)
[2020-07-31] MEDS: PRENATAL VITAMINS CHEWABLE TABLET PO SCH (09:00)
--- NOTE | 2020-07-31 14:39 | DS ---
DATE OF ADMISSION: 07/29/2020 DATE OF DISCHARGE: 07/31/20 DISCHARGE DIAGNOSIS: Primary section, postop day 2, stable condition. SURGEON: Marcie Avila MD FUR FARMER: Radha Barrientos CNM BRIEF HISORY: Magdalena is a 34-year-old 6, para 4-0-2-5 now, underwent primary section for twin gestation, twin A being breech presentation. Surgery was uncomplicated. She delivered two live females, twin A weighing 6 pounds, 1 ounce, scores 8 and 9, twin B weighing 6 pounds, 5 ounces, scores 8 and 9. Estimated blood loss 800 ml. Postoperative course has been uncomplicated. She has been out of bed for self care cathy care and care. Pain has been well managed with by mouth pain medications. She is voiding without difficulty, tolerating by mouth fluids and a regular diet. She does request discharge home today. OBJECTIVE: Temperature 97.8, pulse 83, respirations 17, blood pressure is 122/63. Preoperative complete blood count (CBC) on 07/29/2020: Hemoglobin 10.9, hematocrit 32.8, platelets 296. Postoperative complete blood count (CBC) on 07/30/2020: Hemoglobin 8.5, hematocrit 25.6, platelets 237. He breast were soft, nontender. Nipples are intact. Abdomen: Fundus at umbilicus. The incision dressing is intact. There is no drainage. Perineum is intact. Lochia gissell scant. Bilateral lower extremities: +1 pitting edema. PLAN: Discharge the patient home today. She is to follow up at [facility] for a two week incision check and an [address] Marcie Avila. Prescriptions for her pain medications have been E prescribed to her pharmacy by Dr. Avila. I did review discharge instruction that include breast care, incision care, cathy care, pelvic rest, activity lifting restrictions, other danger signs, which to report to her provider, as well as access to care. All of the patient's questions have been answered and she does desire to be discharged. KATY
== END 2020-07-31 12:32 | disposition home or self-care (01) | DRG 540 ==
LOC: M LDI 05:09 → M OBS 11:30
PROVIDERS: ADMIT Obstetrics & Gynecology; ATTEND Obstetrics & Gynecology
PROC: 10D00Z1 Extraction of Products of Conception, Low, Open Approach (ICD-10-PCS; principal; 2020-07-29 07:30)
DX: O32.1XX1 Maternal care for breech presentation, fetus 1 (principal); Z3A.38 38 weeks gestation of pregnancy; Z37.2 Twins, both liveborn; O30.043 Twin pregnancy, dichorionic/diamniotic, third trimester

== ENCOUNTER → 2020-09-30 | Outpatient (REF) | payer OTHER ==
[~2020-09-30] MED LIST changes: +IBUP80TA PO; +PERCOCET PO
== END ==
LOC: M SFHCWAGY 17:12
PROVIDERS: ATTEND Advanced Practice Midwife
DX: R30.0 Dysuria (principal)

== ENCOUNTER 2021-03-20 20:32 | Emergency (ER) | payer OTHER ==
[~2021-03-20] VITALS: Ht 162.6 cm; Wt 95.3 kg
--- NOTE | 2021-03-21 00:08 | REPVR ---
PROCEDURE INFORMATION: Exam: XR Right Shoulder Exam date and time: 03/20/2021 11:16 PM Age: 35 years old Clinical indication: Other: Pushed off chair w arm and felt pain in shoulder; Additional info: Pushed off chair with arm and felt pain in the shoulder TECHNIQUE: Imaging protocol: XR Right shoulder. Views: 2 or more views. COMPARISON: 1. US DUPLEX EXTREMITY VEINS UNILAT 2020-07-10 10:52 2. US DUPLEX EXT UPPER VEINS UNILATE 2020-06-21 14:55 FINDINGS: Bones/joints: Normal. Soft tissues: Normal. IMPRESSION: No acute findings. Electronically signed by: Jey Iqbal On 03/21/2021 00:07:26 AM
[2021-03-21] MEDS ORDERED: KETOROLAC 30 MG/ML 1ML VIAL IM ONE (01:20)
[2021-03-21] MEDS ORDERED: KETO10TAB PO (01:20)
[2021-03-21] MEDS ORDERED: methocarbamoL 500 MG TAB PO ONE (01:20)
[2021-03-21] MEDS ORDERED: METH-1164 PO (01:27)
[2021-03-21 01:55] VITALS: BP 166/80
== END 2021-03-21 01:58 | disposition home or self-care (01) ==
LOC: M ED 20:32
DX: S46.001A Unspecified injury of muscle(s) and tendon(s) of the rotator cuff of right shoulder, initial encounter (principal); X58.XXXA Exposure to other specified factors, initial encounter; Y92.9 Unspecified place or not applicable; Y93.9 Activity, unspecified; Y99.9 Unspecified external cause status; Z87.891 Personal history of nicotine dependence
CPT/HCPCS: 73030; 96372; 99283; J1885

== ENCOUNTER 2021-04-21 09:30 | Outpatient (RCR) | payer OTHER ==
[~2021-04-21 09:30] MED LIST changes: +KETO10TAB PO; +METH-1164 PO
== END 2021-05-06 ==
LOC: M PT 09:30
PROVIDERS: ATTEND Orthopaedic Surgery Sports Medicine
DX: M75.41 Impingement syndrome of right shoulder (principal)

== ENCOUNTER → 2022-01-05 | Outpatient (REF) | payer OTHER | LOC: M PLALAB 16:31 | PROVIDERS: ATTEND Obstetrics & Gynecology | DX: Z01.419 Encounter for gynecological examination (general) (routine) without abnormal findings (principal) ==

== ENCOUNTER → 2022-03-16 | Outpatient (REF) | payer OTHER | LOC: M SFHCWAGY 13:12 | PROVIDERS: ATTEND Obstetrics & Gynecology | DX: R87.610 Atypical squamous cells of undetermined significance on cytologic smear of cervix (ASC-US) (principal) ==

== ENCOUNTER → 2024-06-12 | Outpatient (CLI) | payer OTHER ==
[2024-06-12 16:57] LABS: BASO # 0.1 10^3/uL (0.0-0.2); BASO % 0.4 % (0.0-1.0); EOS # 0.2 10^3/uL (0.0-0.5); EOS % 1.8 % (0.0-3.0); HEMATOCRIT 44.3 % (36.0-47.0); HEMOGLOBIN 14.5 g/dl (12.0-15.5); LYMPH # 3.8 10^3/uL (1.5-5.0); LYMPH % 33.7 % (24.0-44.0); MEAN CORPUSCULAR HEMOGLOBIN 31.2 pg (27.0-33.0); MEAN CORPUSCULAR HGB CONC 32.7 g/dl (32.0-36.5); MEAN CORPUSCULAR VOLUME 95.3 fl (80.0-96.0); MONO # 0.8 10^3/uL (0.0-0.8); MONO % 6.6 % (2.0-8.0); NEUTROPHILS # 6.5 10^3/uL (1.5-8.5); NEUTROPHILS % 56.8 % (36.0-66.0); PLATELET COUNT, AUTOMATED 245 10^3/uL (150-450); RED BLOOD COUNT 4.65 10^6/uL (4.00-5.40); WHITE BLOOD COUNT 11.4 10^3/uL (4.0-10.0)
[2024-06-12 17:24] LABS: ALBUMIN 3.3 G/DL (3.2-5.2); ALKALINE PHOSPHATASE 64 U/L (46-116); ALT/SGPT 37 U/L (7.0-40); AST/SGOT 17 U/L (<34); BILIRUBIN,TOTAL 0.2 MG/DL (0.3-1.2); BLOOD UREA NITROGEN 15 MG/DL (9-23); CALCIUM LEVEL 9.6 MG/DL (8.5-10.1); CARBON DIOXIDE LEVEL 26 MMOL/L (20-31); CHLORIDE LEVEL 107 MMOL/L (98-107); CREATININE FOR GFR 0.67 MG/DL (0.55-1.30); GLOMERULAR FILTRATION RATE > 60.0 (>60); GLUCOSE, FASTING 78 MG/DL (60-100); IRON (FE) 25 UG/DL (50-170); PERCENT SATURATION 7.6 % (13.2-45.0); POTASSIUM SERUM 4.1 MMOL/L (3.5-5.1); SODIUM LEVEL 140 MMOL/L (136-145); TOTAL IRON BINDING CAPACITY 329 UG/DL (250-425); TOTAL PROTEIN 6.9 G/DL (5.7-8.2)
[2024-06-12 17:26] LABS: FERRITIN 36.3 NG/ML (7.3-270.7); THYROID STIMULATING HORMONE 2.039 uIU/ML (0.55-4.78); TOTAL 25(OH) VITAMIN D 23.5 NG/ML (20.0-100.0)
[2024-06-12 17:28] LABS: IMMUNOGLOBULIN A 350.6 MG/DL (40-350)
== END ==
LOC: M LAB 16:19
PROVIDERS: ATTEND Pediatrics
DX: R19.5 Other fecal abnormalities (principal); R10.9 Unspecified abdominal pain; E61.1 Iron deficiency

== ENCOUNTER 2024-06-26 14:44 | Emergency (ER) | payer OTHER ==
[~2024-06-26] VITALS: Ht 162.6 cm; Wt 101.4 kg
[2024-06-26 14:48] VITALS: BP 140/80; TEMP 97.6; O2SAT 99
[2024-06-26] MEDS ORDERED: SETL1TAB (15:15)
[2024-06-26] MEDS ORDERED: VITA200032 (15:15)
[2024-06-26] MEDS: BACITRACIN OINTMENT 30GM TUBE TOP ONE (17:47)
== END 2024-06-26 17:57 | disposition home or self-care (01) ==
LOC: M ED 14:44
DX: T23.232A Burn of second degree of multiple left fingers (nail), not including thumb, initial encounter (principal); X19.XXXA Contact with other heat and hot substances, initial encounter; Y92.9 Unspecified place or not applicable; Y93.89 Activity, other specified; Y99.9 Unspecified external cause status; Z79.899 Other long term (current) drug therapy; T31.0 Burns involving less than 10% of body surface

== ENCOUNTER → 2024-07-16 | Outpatient (REF) | payer OTHER ==
[~2024-07-16] MED LIST changes: +SETL1TAB; +VITA200032
== END ==
LOC: M LAB REF 10:34
PROVIDERS: ATTEND Pediatrics
DX: R19.5 Other fecal abnormalities (principal)

== ENCOUNTER → 2024-07-26 | Outpatient (REF) | payer OTHER ==
[2024-07-26 17:38] LABS: BASO % 0.3 % (0.0-1.0); EOS # 0.2 10^3/uL (0.0-0.5); EOS % 1.7 % (0.0-3.0); HEMATOCRIT 41.1 % (36.0-47.0); HEMOGLOBIN 13.6 g/dl (12.0-15.5); LYMPH # 4.5 10^3/uL (1.5-5.0); LYMPH % 33.4 % (24.0-44.0); MEAN CORPUSCULAR HEMOGLOBIN 30.6 pg (27.0-33.0); MEAN CORPUSCULAR HGB CONC 33.1 g/dl (32.0-36.5); MEAN CORPUSCULAR VOLUME 92.6 fl (80.0-96.0); MONO # 0.8 10^3/uL (0.0-0.8); MONO % 6.2 % (2.0-8.0); NEUTROPHILS # 7.8 10^3/uL (1.5-8.5); NEUTROPHILS % 57.7 % (36.0-66.0); PLATELET COUNT, AUTOMATED 239 10^3/uL (150-450); RED BLOOD COUNT 4.44 10^6/uL (4.00-5.40); WHITE BLOOD COUNT 13.5 10^3/uL (4.0-10.0)
[2024-07-26 17:47] LABS: ERYTHROCYTE SEDIMENTATION RATE 41 mm/hr (0-20)
== END ==
LOC: M LAB REF 16:43
PROVIDERS: ATTEND Pediatrics
DX: R19.5 Other fecal abnormalities (principal)

== ENCOUNTER → 2024-08-17 | Outpatient (CLI) | payer OTHER | LOC: M SOG 07:54 | PROVIDERS: ATTEND Physician Assistant | DX: M25.522 Pain in left elbow (principal); M25.521 Pain in right elbow; Z53.9 Procedure and treatment not carried out, unspecified reason ==

== ENCOUNTER → 2024-09-13 | Outpatient (REF) | payer OTHER | LOC: M SFHCWAGY 10:03 | PROVIDERS: ATTEND Obstetrics & Gynecology | DX: Z12.4 Encounter for screening for malignant neoplasm of cervix (principal); R87.613 High grade squamous intraepithelial lesion on cytologic smear of cervix (HGSIL) ==

== ENCOUNTER 2024-10-25 09:17 | Day surgery (SDC) | payer OTHER ==
[~2024-10-25] VITALS: Ht 162.6 cm; Wt 102.2 kg
[~2024-10-25 09:17] MED LIST changes: -SETL1TAB; +SETL1TAB PO
[2024-10-25] MEDS ORDERED: LIDOCAINE 2% 100MG/5ML SDV (FOR ANES.) As Ordered ONE (09:24)
[2024-10-25] MEDS ORDERED: propofoL 200 MG/20 ML VIAL As Ordered ONE (09:24)
[2024-10-25] MEDS ORDERED: ONDANSETRON 4MG 2ML VIAL As Ordered ONE (09:24)
[2024-10-25] MEDS ORDERED: MIDAZOLAM INJ 2MG/2ML VIAL As Ordered ONE (09:24)
[2024-10-25] MEDS ORDERED: fentaNYL 100 MCG/2 ML INJECTION As Ordered ONE (09:24)
[2024-10-25] MEDS ORDERED: ACETAMINOPHEN 1000MG/100ML IV BAG As Ordered ONE (09:25)
[2024-10-25] MEDS ORDERED: LIDOCAINE 1% SDV 5ML VIAL SC PRN (09:50)
[2024-10-25] MEDS: LR 1,000 ML IV SCH (09:53)
[2024-10-25 10:07] LABS: HEMATOCRIT 42.7 % (36.0-47.0); MEAN CORPUSCULAR HGB CONC 32.8 g/dl (32.0-36.5); MEAN CORPUSCULAR VOLUME 94.5 fl (80.0-96.0); PLATELET COUNT, AUTOMATED 230 10^3/uL (150-450); RED BLOOD COUNT 4.52 10^6/uL (4.00-5.40); WHITE BLOOD COUNT 9.5 10^3/uL (4.0-10.0)
[2024-10-25] MEDS: LIDOCAINE 1% SDV 30ML VIAL As Ordered ONE (11:03)
[2024-10-25] MEDS: LIDOCAINE W/EPINEPHRINE 1% 20ML VIAL As Ordered ONE (11:08)
[2024-10-25 11:12] VITALS: BP 116/68; TEMP 96.9; O2SAT 99
== END 2024-10-25 11:50 | disposition home or self-care (01) ==
LOC: M SDC 09:17
PROVIDERS: ATTEND Obstetrics & Gynecology
DX: D06.9 Carcinoma in situ of cervix, unspecified (principal); F17.210 Nicotine dependence, cigarettes, uncomplicated; Z79.899 Other long term (current) drug therapy
CPT/HCPCS: 36415; 57460; 81025; 85027; 86850; 86900; 86901; 88307; J0131; J2250; J2405; J3010

== ENCOUNTER 2024-10-30 02:25 | Emergency (ER) | payer OTHER ==
[~2024-10-30] VITALS: Ht 162.6 cm; Wt 102.5 kg
[2024-10-30 02:57] LABS: KETONE, URINE AUTO RFX NEGATIVE (NEGATIVE); MUCUS, URINE RFX SMALL (NEGATIVE); NITRITE, URINE AUTO RFX NEGATIVE (NEGATIVE); RBC, URINE AUTO RFX 142 /HPF (0-3); SQUAM EPITHELIAL CELL UR AURFX 2 /HPF (0-6)
[2024-10-30 02:58] LABS: LEUKOCYTE ESTERASE UR AUTO RFX 3+ (NEGATIVE); WBC, URINE AUTO RFX TNTC /HPF (0-3)
[2024-10-30 02:59] LABS: BASO % 0.2 % (0.0-1.0); EOS # 0.1 10^3/uL (0.0-0.5); EOS % 1.1 % (0.0-3.0); HEMATOCRIT 42.7 % (36.0-47.0); HEMOGLOBIN 14.8 g/dl (12.0-15.5); MEAN CORPUSCULAR HEMOGLOBIN 31.4 pg (27.0-33.0); MEAN CORPUSCULAR HGB CONC 34.7 g/dl (32.0-36.5); MEAN CORPUSCULAR VOLUME 90.7 fl (80.0-96.0); MONO # 0.7 10^3/uL (0.0-0.8); MONO % 5.8 % (2.0-8.0); NEUTROPHILS # 9.3 10^3/uL (1.5-8.5); NEUTROPHILS % 76.2 % (36.0-66.0); PLATELET COUNT, AUTOMATED 247 10^3/uL (150-450); RED BLOOD COUNT 4.71 10^6/uL (4.00-5.40); WHITE BLOOD COUNT 12.2 10^3/uL (4.0-10.0)
[2024-10-30 03:24] LABS: LIPASE 30 U/L (12-53)
[2024-10-30 03:27] LABS: ALBUMIN 3.4 G/DL (3.2-5.2); ALKALINE PHOSPHATASE 63 U/L (35-104); ALT/SGPT 43 U/L (7.0-40); AST/SGOT 23 U/L (<34); BILIRUBIN,DIRECT 0.2 MG/DL (<0.4); BILIRUBIN,TOTAL 0.5 MG/DL (0.3-1.2); BLOOD UREA NITROGEN 12 MG/DL (9-23); CALCIUM LEVEL 9.1 MG/DL (8.5-10.1); CARBON DIOXIDE LEVEL 23 MMOL/L (20-31); CHLORIDE LEVEL 104 MMOL/L (98-107); CREATININE FOR GFR 0.62 MG/DL (0.55-1.30); GLOMERULAR FILTRATION RATE > 60.0 (>60); GLUCOSE, FASTING 101 MG/DL (60-100); POTASSIUM SERUM 4.3 MMOL/L (3.5-5.1); SODIUM LEVEL 136 MMOL/L (136-145); TOTAL PROTEIN 7.1 G/DL (5.7-8.2)
[2024-10-30 03:48] LABS: HCG, SERUM QUALITATIVE NEGATIVE (NEGATIVE)
[2024-10-30] MEDS ORDERED: ISOVUE-370 76% 100ML VIAL As Ordered ONE (06:43)
[2024-10-30] MEDS: KETOROLAC 30 MG/ML 1ML VIAL IV ONE (08:02)
[2024-10-30] MEDS: ONDANSETRON 4MG 2ML VIAL IV ONE (08:02)
[2024-10-30] MEDS: cefTRIAXone SOD 1 GM in DEXTROSE 5% (D5W) ADV/MINI-BAG 50 ML IV ONE (08:03)
[2024-10-30] MEDS: NS (Normal Saline) 0.9% 1,000 ML IV ONE (08:03)
[2024-10-30] MEDS ORDERED: CEFD300CAP PO (09:28)
[2024-10-30 10:29] VITALS: BP 115/68; TEMP 97.5; O2SAT 95
== END 2024-10-30 10:30 | disposition home or self-care (01) ==
LOC: M ED 02:25
DX: N20.0 Calculus of kidney (principal); N39.0 Urinary tract infection, site not specified; D17.71 Benign lipomatous neoplasm of kidney; R50.9 Fever, unspecified; Z79.2 Long term (current) use of antibiotics; Z79.899 Other long term (current) drug therapy
CPT/HCPCS: 71045; 74177; 80048; 80076; 81001; 83605; 83690; 84703; 85025; 87040; 87088; 87186; 87486; 87581; 87633; 87798; 96365; 96366; 96375; 99284; J0696; J1885; J2405; Q9967

== ENCOUNTER → 2024-11-20 | Outpatient (REF) | payer OTHER ==
[~2024-11-20] MED LIST changes: +CEFD300CAP PO
[2024-11-20 17:53] LABS: APPEARANCE, URINE HAZY (CLEAR); BACTERIA, URINE AUTO NEGATIVE (NEGATIVE); BILIRUBIN, URINE AUTO NEGATIVE (NEGATIVE); BLOOD, URINE BLOOD 1+ (NEGATIVE); COLOR, URINE YELLOW (YELLOW); GLUCOSE, URINE (UA) AUTO NEGATIVE (NEGATIVE); KETONE, URINE AUTO NEGATIVE (NEGATIVE); LEUKOCYTE ESTERASE, URINE AUTO NEGATIVE (NEGATIVE); MUCUS, URINE SMALL (NEGATIVE); NITRITE, URINE AUTO NEGATIVE (NEGATIVE); PROTEIN, URINE AUTO NEGATIVE (NEGATIVE); RBC, URINE AUTO 5 /HPF (0-3); SPECIFIC GRAVITY URINE AUTO 1.016 (1.002-1.035); SQUAMOUS EPITHELIAL CELL UR AU 6 /HPF (0-6); UROBILINOGEN, URINE AUTO 0.2 mg/dL (0.0-2.0); WBC, URINE AUTO 1 /HPF (0-3)
== END ==
LOC: M SMT 16:55
PROVIDERS: ATTEND Nurse Practitioner Family
DX: Z87.440 Personal history of urinary (tract) infections (principal)

== ENCOUNTER 2024-12-08 08:28 | Day surgery (SDC) | payer OTHER ==
[~2024-12-08] VITALS: Ht 162.6 cm; Wt 101.5 kg
[~2024-12-08 08:28] MED LIST changes: +GLYCOPYRROLATE INJ 0.2 MG/ML 2 ML VIAL As Ordered ONE; +KETOROLAC 30 MG/ML 1ML VIAL As Ordered ONE; +LIDOCAINE 2% 100MG/5ML SDV (FOR ANES.) As Ordered ONE; +MIDAZOLAM INJ 2MG/2ML VIAL As Ordered ONE; +ONDANSETRON 4MG 2ML VIAL As Ordered ONE; +fentaNYL 100 MCG/2 ML INJECTION As Ordered ONE; +propofoL 200 MG/20 ML VIAL As Ordered ONE
[2024-12-08] MEDS: LR 1,000 ML IV SCH (09:35)
[2024-12-08] MEDS ORDERED: ACETAMINOPHEN 1000MG/100ML IV BAG As Ordered ONE (11:18)
[2024-12-08] MEDS ORDERED: MORPHINE 2 MG/ML 1ML VIAL IV PRN (11:45)
[2024-12-08] MEDS ORDERED: fentaNYL 100 MCG/2 ML INJECTION IV PRN ×2 (11:45→12:00)
[2024-12-08] MEDS ORDERED: ONDANSETRON 4MG 2ML VIAL IV PRN ×2 (11:45→12:00)
[2024-12-08] MEDS ORDERED: oxyCODONE 5MG TAB PO PRN (12:00)
[2024-12-08] MEDS ORDERED: LR 1,000 ML IV SCH (12:00)
[2024-12-08] MEDS ORDERED: HYDROMORPHONE HCL 0.5 MG/ 0.5 ML SYRINGE IV PRN (12:00)
[2024-12-08] MEDS: oxyCODONE 5MG TAB PO PRN (12:18)
[2024-12-08 12:45] VITALS: BP 130/77; TEMP 97; O2SAT 100
== END 2024-12-08 13:00 | disposition home or self-care (01) ==
LOC: M SDC 08:28
PROVIDERS: ATTEND Orthopaedic Surgery Hand Surgery
DX: G56.01 Carpal tunnel syndrome, right upper limb (principal); F17.210 Nicotine dependence, cigarettes, uncomplicated; Z79.3 Long term (current) use of hormonal contraceptives
CPT/HCPCS: 29848; 81025; J0131; J0665; J1100; J1596; J1885; J2250; J2405; J3010

== ENCOUNTER → 2024-12-18 | Outpatient (REF) | payer OTHER ==
[~2024-12-18] MED LIST changes: -GLYCOPYRROLATE INJ 0.2 MG/ML 2 ML VIAL As Ordered ONE; -KETOROLAC 30 MG/ML 1ML VIAL As Ordered ONE; -LIDOCAINE 2% 100MG/5ML SDV (FOR ANES.) As Ordered ONE; -MIDAZOLAM INJ 2MG/2ML VIAL As Ordered ONE; -ONDANSETRON 4MG 2ML VIAL As Ordered ONE; -fentaNYL 100 MCG/2 ML INJECTION As Ordered ONE; -propofoL 200 MG/20 ML VIAL As Ordered ONE
== END ==
LOC: M SFHCADAM 08:46
PROVIDERS: ATTEND Nurse Practitioner Family
DX: N20.0 Calculus of kidney (principal)

== ENCOUNTER → 2024-12-20 | Outpatient (REF) | payer OTHER ==
[2024-12-20 15:37] LABS: APPEARANCE, URINE CLEAR (CLEAR); BACTERIA, URINE AUTO NEGATIVE (NEGATIVE); BILIRUBIN, URINE AUTO NEGATIVE (NEGATIVE); BLOOD, URINE BLOOD 1+ (NEGATIVE); COLOR, URINE YELLOW (YELLOW); GLUCOSE, URINE (UA) AUTO NEGATIVE (NEGATIVE); KETONE, URINE AUTO NEGATIVE (NEGATIVE); LEUKOCYTE ESTERASE, URINE AUTO NEGATIVE (NEGATIVE); MUCUS, URINE SMALL (NEGATIVE); NITRITE, URINE AUTO NEGATIVE (NEGATIVE); PROTEIN, URINE AUTO NEGATIVE (NEGATIVE); RBC, URINE AUTO 6 /HPF (0-3); SPECIFIC GRAVITY URINE AUTO 1.015 (1.002-1.035); SQUAMOUS EPITHELIAL CELL UR AU 2 /HPF (0-6); UROBILINOGEN, URINE AUTO 0.2 mg/dL (0.0-2.0); WBC, URINE AUTO 2 /HPF (0-3)
== END ==
LOC: M SMT 14:50
PROVIDERS: ATTEND Nurse Practitioner Family
DX: R31.9 Hematuria, unspecified (principal)

== ENCOUNTER → 2024-12-29 | Outpatient (CLI) | payer OTHER ==
[~2024-12-29] MED LIST changes: +FERA1TAB PO; +JOLETAB PO; +VITA200032 PO
== END ==
LOC: M EKG 15:19
PROVIDERS: ATTEND Internal Medicine Medical Oncology
DX: I49.9 Cardiac arrhythmia, unspecified (principal)

== ENCOUNTER 2025-01-05 07:46 | Day surgery (SDC) | payer OTHER ==
[~2025-01-05] VITALS: Ht 162.6 cm; Wt 102.9 kg
[2025-01-05] MEDS ORDERED: LR 1,000 ML IV SCH ×2 (08:25→10:50)
[2025-01-05] MEDS ORDERED: KETOROLAC 30 MG/ML 1ML VIAL As Ordered ONE (09:11)
[2025-01-05] MEDS ORDERED: fentaNYL 100 MCG/2 ML INJECTION As Ordered ONE (09:11)
[2025-01-05] MEDS ORDERED: propofoL 200 MG/20 ML VIAL As Ordered ONE (09:11)
[2025-01-05] MEDS ORDERED: ONDANSETRON 4MG 2ML VIAL As Ordered ONE (09:11)
[2025-01-05] MEDS ORDERED: LIDOCAINE 2% 100MG/5ML SDV (FOR ANES.) As Ordered ONE (09:11)
[2025-01-05] MEDS ORDERED: MIDAZOLAM INJ 2MG/2ML VIAL As Ordered ONE (09:50)
[2025-01-05] MEDS ORDERED: ACETAMINOPHEN 1000MG/100ML IV BAG As Ordered ONE (09:51)
[2025-01-05] MEDS: BACITRACIN OINTMENT 30GM TUBE As Ordered ONE (10:32)
[2025-01-05] MEDS ORDERED: ONDANSETRON 4MG 2ML VIAL IV PRN (10:50)
[2025-01-05] MEDS ORDERED: fentaNYL 100 MCG/2 ML INJECTION IV PRN (10:50)
[2025-01-05] MEDS: HYDROMORPHONE HCL 0.5 MG/ 0.5 ML SYRINGE IV PRN (11:15)
[2025-01-05] MEDS: oxyCODONE 5MG TAB PO PRN (11:15)
[2025-01-05 11:40] VITALS: BP 149/69; TEMP 97.8; O2SAT 97
== END 2025-01-05 11:50 | disposition home or self-care (01) ==
LOC: M SDC 07:46
PROVIDERS: ATTEND Orthopaedic Surgery Hand Surgery
DX: G56.02 Carpal tunnel syndrome, left upper limb (principal); F17.210 Nicotine dependence, cigarettes, uncomplicated; Z79.899 Other long term (current) drug therapy
CPT/HCPCS: 29848; 81025; J0131; J0665; J1100; J1171; J1885; J2250; J2405; J3010

== ENCOUNTER → 2025-01-16 | Outpatient (REF) | payer OTHER ==
[2025-01-16 17:25] LABS: APPEARANCE, URINE CLEAR (CLEAR); BACTERIA, URINE AUTO 1+ (NEGATIVE); BILIRUBIN, URINE AUTO NEGATIVE (NEGATIVE); BLOOD, URINE BLOOD 1+ (NEGATIVE); COLOR, URINE YELLOW (YELLOW); GLUCOSE, URINE (UA) AUTO NEGATIVE (NEGATIVE); KETONE, URINE AUTO NEGATIVE (NEGATIVE); LEUKOCYTE ESTERASE, URINE AUTO NEGATIVE (NEGATIVE); NITRITE, URINE AUTO NEGATIVE (NEGATIVE); PROTEIN, URINE AUTO NEGATIVE (NEGATIVE); RBC, URINE AUTO 2 /HPF (0-3); SPECIFIC GRAVITY URINE AUTO 1.008 (1.002-1.035); SQUAMOUS EPITHELIAL CELL UR AU 2 /HPF (0-6); UROBILINOGEN, URINE AUTO 0.2 mg/dL (0.0-2.0); WBC, URINE AUTO 1 /HPF (0-3)
== END ==
LOC: M SMT 15:19
PROVIDERS: ATTEND Nurse Practitioner Family
DX: R31.9 Hematuria, unspecified (principal)

== ENCOUNTER 2025-01-20 21:49 | Emergency (ER) | payer OTHER ==
[~2025-01-20] VITALS: Ht 162.6 cm; Wt 105.2 kg
[2025-01-20 22:14] LABS: APPEARANCE, URINE HAZY (CLEAR); BACTERIA, URINE AUTO NEGATIVE (NEGATIVE); BILIRUBIN, URINE AUTO NEGATIVE (NEGATIVE); BLOOD, URINE BLOOD 1+ (NEGATIVE); COLOR, URINE YELLOW (YELLOW); GLUCOSE, URINE (UA) AUTO NEGATIVE (NEGATIVE); KETONE, URINE AUTO NEGATIVE (NEGATIVE); LEUKOCYTE ESTERASE, URINE AUTO NEGATIVE (NEGATIVE); NITRITE, URINE AUTO NEGATIVE (NEGATIVE); PROTEIN, URINE AUTO NEGATIVE (NEGATIVE); RBC, URINE AUTO 7 /HPF (0-3); SPECIFIC GRAVITY URINE AUTO 1.015 (1.002-1.035); UROBILINOGEN, URINE AUTO 0.2 mg/dL (0.0-2.0); WBC, URINE AUTO 2 /HPF (0-3)
[2025-01-20 22:15] LABS: MUCUS, URINE SMALL (NEGATIVE); SQUAMOUS EPITHELIAL CELL UR AU 1 /HPF (0-6)
[2025-01-21 00:58] VITALS: BP 148/78; TEMP 98; O2SAT 100
== END 2025-01-21 01:00 | disposition home or self-care (01) ==
LOC: M ED 21:49
DX: N20.0 Calculus of kidney (principal); R16.0 Hepatomegaly, not elsewhere classified; K76.0 Fatty (change of) liver, not elsewhere classified; Z79.899 Other long term (current) drug therapy

== ENCOUNTER → 2025-06-01 | Outpatient (CLI) | payer OTHER | LOC: M WHC 13:37 | PROVIDERS: ATTEND Nurse Practitioner Family | DX: N20.0 Calculus of kidney (principal) ==

== ENCOUNTER → 2025-06-07 | Outpatient (REF) | payer OTHER ==
[2025-06-07 18:13] LABS: APPEARANCE, URINE HAZY (CLEAR); BACTERIA, URINE AUTO NEGATIVE (NEGATIVE); BILIRUBIN, URINE AUTO NEGATIVE (NEGATIVE); BLOOD, URINE BLOOD 1+ (NEGATIVE); GLUCOSE, URINE (UA) AUTO NEGATIVE (NEGATIVE); KETONE, URINE AUTO NEGATIVE (NEGATIVE); LEUKOCYTE ESTERASE, URINE AUTO NEGATIVE (NEGATIVE); NITRITE, URINE AUTO NEGATIVE (NEGATIVE); PROTEIN, URINE AUTO NEGATIVE (NEGATIVE); RBC, URINE AUTO 4 /HPF (0-3); SPECIFIC GRAVITY URINE AUTO 1.017 (1.002-1.035); SQUAMOUS EPITHELIAL CELL UR AU 1 /HPF (0-6); UROBILINOGEN, URINE AUTO 0.2 mg/dL (0.0-2.0); WBC, URINE AUTO 1 /HPF (0-3)
== END ==
LOC: M LAB REF 13:53
PROVIDERS: ATTEND Nurse Practitioner Family
DX: N20.0 Calculus of kidney (principal)